=== PATIENT | female | born 1965 | race Caucasian/White ===

== ENCOUNTER 2016-04-24 17:54 | Emergency (ER) | payer MEDICAID ==
[2016-04-24] MEDS ORDERED: DEXAMETHASONE 4 MG/ML VIAL ONE (19:55)
[2016-04-24] MEDS ORDERED: CYCLOBENZAPRINE 10 MG TAB ONE (19:55)
== END 2016-04-24 20:23 | disposition home or self-care (01) ==
LOC: FASTR 17:54
CPT/HCPCS: 96372

== ENCOUNTER 2016-05-20 10:49 | Emergency (ER) | payer MEDICAID ==
[2016-05-20] MEDS ORDERED: DILAUDID 1 MG/ML AMP ONE (14:22)
== END 2016-05-20 15:40 | disposition home or self-care (01) ==
LOC: ER 10:49
DX: R10.31 Right lower quadrant pain (principal); J20.9 Acute bronchitis, unspecified; J01.20 Acute ethmoidal sinusitis, unspecified; F17.210 Nicotine dependence, cigarettes, uncomplicated
CPT/HCPCS: 36415; 71020; 74176; 80053; 81001; 83690; 85025; 87088; 96361; 96374; 96375; 96376